=== PATIENT | male | born 1965 | race Hispanic/Latino ===

== ENCOUNTER 2016-09-05 19:03 | Emergency (ER) | payer OTHER ==
[2016-09-05 20:09] VITALS: BMI 23.9
[2016-09-05 20:12] VITALS: RESP 18; TEMP 98.5; O2SAT 97
[2016-09-05] MEDS ORDERED: Famotidine 20mg/50ml 50 ML IV STA (20:47)
[2016-09-05] MEDS ORDERED: Sodium Chloride 0.9% 1,000 ML IV STA (20:47)
--- NOTE | 2016-09-05 21:05 | ED PDOC ---
Arrival/HPI - General Chief Complaint: GI Problem Time Seen by Provider: 09/05/16 20:21 Historian: Patient - History of Present Illness Narrative History of Present Illness (Text): 09/05/16 21:06 51 year old male who denies past medical history presents to the emergency department with 1 day duration of nausea/vomiting/diarrhea with some epigastric pain only while vomiting. Patient describes non-bilious non-bloody vomiting and watery diarrhea. Patient states people living in the same building are sick with similar symptoms. No chest pain, shortness of breath, or dyspnea on exertion. Time/Duration: 24 hours Symptom Onset: Gradual Symptom Course: Unchanged Modifying Factors (Text): None Past Medical History - Provider Review Nursing Documentation Reviewed: Yes - Infectious Disease Hx of Infectious Diseases: None - Psychiatric Hx Substance Use: No - Anesthesia Hx Anesthesia: No Family/Social History - Physician Review Nursing Documentation Reviewed: Yes Family/Social History: Unknown Family HX Smoking Status: Never Smoked Hx Alcohol Use: Yes Frequency of alcohol use: Socially Hx Substance Use: No Allergies/Home Meds Allergies/Adverse Reactions: Allergies No Known Allergies Allergy (Verified 09/05/16 20:09) Review of Systems - Physician Review All systems were reviewed & negative as marked: Yes Physical Exam - Physical Exam Narrative Physical Exam (Text): - Review of Systems Constitutional: Normal. absent: Fatigue, Weight Change, Fevers Eyes: Normal ENT: Normal Respiratory: Normal absent: SOB, Cough, Sputum Cardiovascular: Normal absent: Chest pain, Palpitations, Syncope Gastrointestinal: Epigastric pain when vomiting, Diarrhea, Nausea, Vomiting Genitourinary: Normal. absent: Dysuria, Frequency, Hematuria Musculoskeletal: Normal. absent: Arthralgias, Back Pain, Neck Pain Skin: Normal Neurological: Normal absent: Focal Weakness Endocrine: Normal Hemo/Lymphatic: Normal Psychiatric: Normal - Physical exam Patient appears age appropriate, speaking full sentences without difficulty - Systems Exam Head: Present: Atraumatic, Normocephalic Pupils: Present: PERRL Extraocular Muscles: Present: EOMI Conjunctiva: Present: Normal Mouth: Present: Moist Mucous Membranes Neck: Present: Normal Range of Motion. No: MIDLINE TENDERNESS, Paraspinal Tenderness Respiratory/Chest: Present: Clear to Auscultation, Good Air Exchange. No: Respiratory Distress, Accessory Muscle Use, Tachypneic Cardiovascular: Present: Regular Rate and Rhythm, Normal S1, S2, Peripheral Pulses Present. No: Murmurs Abdomen: Present: Normal Bowel Sounds, No: Tenderness, Peritoneal Signs, Rebound, Guarding, Distention Back: Present: Normal Inspection. No: Midline Tenderness, Paraspinal Tenderness Upper Extremity: Present: Normal Inspection. No: Cyanosis, Edema Lower Extremity: Present: Normal Inspection. No: Edema Neurological: Present: GCS=15, Speech Normal, cranial nerves II through XII fully intact with no cerebellar abnormality, neuro-sensory fully intact. No focal neurological deficits. Skin: Present: Warm, Dry, Normal Color. No: Rashes Lymphatic: Present: OX3, NI, NC Psychiatric: Present: Alert, Oriented x 3, Normal Insight, Normal Concentration . Vital Signs Reviewed: Yes Vital Signs Temp Pulse Resp BP Pulse Ox 09/05/16 20:11 98.5 F 102 H 18 128/78 97 Temperature: Afebrile Blood Pressure: Normal Pulse: Tachycardic Respiratory Rate: Normal Appearance: Positive for: Well-Appearing, Non-Toxic, Comfortable Pain Distress: None Mental Status: Positive for: Alert and Oriented X 3 Medical Decision Making ED Course and Treatment: Impression: 51 year old male who denies past medical history presents to the emergency department with 1 day duration of nausea/vomiting/diarrhea with some epigastric pain only while vomiting. On physical exam, patient has no acute findings. Differential Diagnosis included but are not limited to: Gastroenteritis vs viral illness Plan: -- Pepcid, Toradol, Zofran, IV fluids -- Labs -- Reassess and disposition Progress Notes: 09/05/16 22:19 On reevaluation, patient reports that he feels much better and would like to be discharged home. Patient's repeat abdominal exam is soft, nontender, non distended with positive bowel sounds in all 4 quadrants and no peritoneal signs. Patient is tolerating PO without any difficulty. Pt states he understands to return to the ER right away for new or worsening symptoms or for inability to f/u with PMD or specialist as instructed. Patient states that he fully agrees with and understands discharge instructions. States that he agrees with the plan and disposition. Verbalized and repeated discharge instructions and plan. I have given the patient opportunity to ask any additional questions. - Lab Interpretations Lab Results: 09/05/16 21:19 09/05/16 21:19 Lab Results 09/05/16 21:45: Influenza Typ A,B (EIA) Negative for flu a/b 09/05/16 21:19: WBC 11.1 H, RBC 4.86, Hgb 15.2, Hct 44.4, MCV 91.4, MCH 31.3, MCHC 34.2, RDW 13.1, Plt Count 227, MPV 11.4 H, Neutrophils % (Manual) Pending, Lymphocytes % (Manual) Pending, Monocytes % (Manual) Pending, PT 10.9, INR 1.01 , APTT 26.9, Sodium 139, Potassium 3.7, Chloride 99, Carbon Dioxide 26, Anion Gap 18, BUN 16, Creatinine 0.8, Est GFR ( Amer) > 60, Est GFR (Non-Af Amer) > 60, Random Glucose 104, Calcium 8.7, Total Bilirubin 0.7, AST 30, ALT 24 , Alkaline Phosphatase 62, Total Protein 8.9 H, Albumin 4.7, Globulin 4.3, Albumin/Globulin Ratio 1.1, Lipase 52 - Medication Orders Current Medication Orders: Discontinued Medications Famotidine (Pepcid 20mg/50ml Premix) 50 mls @ 100 mls/hr IV STAT STA Stop: 09/05/16 21:16 Last Admin: 09/05/16 21:17 Dose: 100 MLS/HR eMAR Start Stop Document 09/05/16 21:17 RAHEEL (Rec: 09/05/16 21:17 [facility] [id number]) Intravenous Solution Start Date 09/05/16 Start Time 21:17 End Date 09/05/16 End time 21:47 Total Infusion Time 30 Sodium Chloride (Sodium Chloride 0.9%) 1,000 mls @ 1,000 mls/hr IV .Q1H STA Stop: 09/05/16 21:46 Last Admin: 09/05/16 21:16 Dose: 1,000 MLS/HR eMAR Start Stop Document 09/05/16 21:16 RAHEEL (Rec: 09/05/16 21:17 [facility] [id number]) Intravenous Solution Start Date 09/05/16 Start Time 21:17 End Date 09/05/16 End time 22:17 Total Infusion Time 60 Ketorolac Tromethamine (Toradol) 15 mg IVP STAT STA Stop: 09/05/16 20:51 Last Admin: 09/05/16 21:17 Dose: 15 MG IVP Administration Document 09/05/16 21:17 FJMax (Rec: 09/05/16 21:17 FJ [id number]) Charges for Administration # of IVP Administrations 1 Ondansetron HCl (Zofran Inj) 4 mg IVP STAT STA Stop: 09/05/16 20:48 Last Admin: 09/05/16 21:17 Dose: 4 MG IVP Administration Document 09/05/16 21:17 FJA (Rec: 09/05/16 21:17 FJA [id number]) Charges for Administration # of IVP Administrations 1 - Scribe Statement The provider has reviewed the documentation as recorded by the Guerda William Provider Scribe Attestation: All medical record entries made by the Guerda were at my direction and personally dictated by me. I have reviewed the chart and agree that the record accurately reflects my personal performance of the history, physical exam, medical decision making, and the department course for this patient. I have also personally directed, reviewed, and agree with the discharge instructions and disposition. Disposition/Present on Arrival - Present on Arrival Any Indicators Present on Arrival: No History of DVT/PE: No History of Uncontrolled Diabetes: No Urinary Catheter: No History of Decub. Ulcer: No History Surgical Site Infection Following: None - Disposition Have Diagnosis and Disposition been Completed?: Yes Diagnosis: Nausea vomiting and diarrhea Disposition: HOME/ ROUTINE Disposition Time: 22:24 Patient Plan: Discharge Condition: GOOD Discharge Instructions (ExitCare): Abdominal Pain (ED), Acute Abdominal Pain ( ED) Print Language: MALAGASY Additional Instructions: PLEASE RETURN TO THE EMERGENCY DEPARTMENT FOR NEW OR WORSENING SYMPTOMS. RETURN RIGHT AWAY IF YOU CANNOT FOLLOW UP WITH YOUR PRIMARY CARE DOCTOR, CLINIC, OR SPECIALIST IN 1-2 DAYS. Prescriptions: Ibuprofen [Motrin] 600 mg PO Q8 PRN #12 tab PRN Reason: Pain, Moderate (4-7) Famotidine [Pepcid] 20 mg PO BID #14 tab Ondansetron [Zofran Odt] 4 mg PO Q6 PRN #14 odt PRN Reason: Nausea/Vomiting
[2016-09-05 21:36] LABS: ALB/GLOB RATIO 1.1 (1.1-1.8); ALKALINE PHOSPHATASE 62 U/L (38-133); ALT/SGPT 24 U/L (7-56); AST/SGOT 30 U/L (15-59); BILIRUBIN,TOTAL 0.7 mg/dL (0.2-1.3); BLOOD UREA NITROGEN 16 mg/dL (7-21); CALCIUM 8.7 mg/dL (8.4-10.5); CARBON DIOXIDE 26 mmol/L (21-33); CHLORIDE 99 mmol/L (98-107); GFR AFRICAN-AMERICAN > 60; GLUCOSE,RANDOM 104 mg/dL (70-110); LIPASE 52 U/L (23-300); POTASSIUM 3.7 mmol/L (3.6-5.0); SODIUM 139 mmol/L (132-148); TOTAL PROTEIN 8.9 g/dL (5.8-8.3)
[2016-09-05 21:37] LABS: HEMATOCRIT 44.4 % (42.0-52.0); MEAN CELL VOLUME 91.4 fL (80.0-105.0); MEAN CORPUSCULAR HEMOGLOBIN 31.3 pg (25.0-35.0); MEAN CORPUSCULAR HGB CONC 34.2 g/dl (31.0-37.0); MEAN PLATELET VOLUME 11.4 fl (7.0-11.0); PLATELET COUNT 227 10^3/uL (120.0-450.0); RED CELL DISTRIBUTION WIDTH 13.1 % (11.5-14.5); WHITE BLOOD COUNT 11.1 10^3/ul (4.5-11.0)
[2016-09-05 21:45] LABS: INR 1.01 (0.93-1.08); PARTIAL THROMBOPLASTIN TIME 26.9 Seconds (23.7-30.8)
[2016-09-05 21:46] LABS: ADD MANUAL DIFF? YES
[2016-09-05 22:29] VITALS: BP 109/56; PULSE 88
[2016-09-05 23:34] LABS: BAND 7 % (0-2); EOSINOPHIL 1 % (0.0-3.0); NEUTROPHIL 78 % (50.0-70.0); PLATELET ESTIMATE NORMAL (NORMAL)
== END 2016-09-05 22:32 | disposition home or self-care (01) ==
LOC: ED 19:03
DX: R11.2 Nausea with vomiting, unspecified (principal); R19.7 Diarrhea, unspecified
CPT/HCPCS: 80053; 83690; 85025; 85610; 85730; 87804; 96365; 96375; 99284; J1885; J2405; J7040